=== PATIENT | female | born 1960 | race Caucasian/White ===

== ENCOUNTER 2016-07-13 06:33 | Emergency (ER) | payer OTHER ==
--- NOTE | 2016-07-13 07:59 | Diag Imaging Result Document ---
PROCEDURE NAME: HAND COMPLETE LEFT - 07/13/2016 LEFT HAND, 3 VIEWS: FINDINGS: There is degenerative change in the interphalangeal joints generally. There is deformity of the distal radius which may be due to a previous fracture. There are no previous studies available for comparison. IMPRESSION: Degenerative arthritis.
[2016-07-13] MEDS ORDERED: NORCO-10 PO ONE (10:13)
--- NOTE | 2016-07-13 10:13 | PROVIDER DOCUMENTATION ---
HPI-Musculoskeletal Pain/Inj - GENERAL Chief Complaint: Fall Stated Complaint: FALL Time Seen by Provider: 07/13/16 09:11 Source: patient - HX OF PRESENT ILLNESS-MUSKULOSKELTAL Nature of Presenting Problem: Pt is a 56 y/o F c chief complaint of L hand pain and headache since having a mechanical fall while attempting to hang a shower curtain. Pt denies LOC. She states that she hit her hand when falling. She denies any back or neck pain. Pt is ambulatory on arrival, and in minimal distress. Review of Systems - Adult - REVIEW OF SYSTEMS - ADULT Constitutional: reports: no symptoms reported. denies: chills, fatique Eyes: reports: no symptoms reported. denies: blurred vision, double vision Ears, Nose, Mouth & Throat: reports: no symptoms reported. denies: ear discharge, nose pain Cardiovascular: reports: no symptoms reported. denies: chest pain, heart murmur Respiratory: reports: no symptoms reported. denies: cough, shortness of breath Gastrointestinal: reports: no symptoms reported. denies: abdominal pain, nausea Genitourinary: reports: no symptoms reported. denies: dysuria, hematuria Musculoskeletal: reports: bone pain, joint pain. denies: joint swelling Integumentary: reports: no symptoms reported. denies: itching, rash Neurological: reports: no symptoms reported. denies: numbness, paresthesia Psychiatric: reports: no symptoms reported. denies: anxiety, emotional problems Endocrine: reports: no symptoms reported. denies: cold intolerance, heat intolerance Hematologic/Lymphatic: reports: no symptoms reported. denies: blood clots, low blood count Allergic/Immunologic: reports: no symptoms reported. denies: allergic reactions , food allergy All Other Systems: Reviewed and Negative Past History - Adult - PAST MEDICAL HISTORY-ADULT Review of Records: reports: Old Records Reviewed, Nursing Assessment Review, Medications Reviewed, Social history reviewed & non-contributory. Major Childhood Illnesses: reports: denies history Cardiovascular: reports: denies history Respiratory: reports: denies history Gastrointestinal: reports: denies history Obstetrical/Gynecological: reports: denies history Genitourinary: reports: denies history Musculoskeletal: reports: orthopedic injury Neurological: reports: headaches/migraines, past injury Psychiatric: reports: anxiety Endocrine/Immune: reports: denies history Other Conditions: reports: denies history - PRIOR SURGERIES/PROCEDURES Surgical/Procedure History: reports: appendectomy, cholecystectomy, hysterectomy , orthopedic (extremity) - PRIOR HOSPITALIZATIONS Prior Hospitalizations: reports: none - IMMUNIZATION STATUS Childhood Immunizations: See Nurse Assessment Flu Vaccine: See Nurse Assessment - FAMILY HISTORY Family History: CAD over 55 yo Physical Exam-Injury Related - Physical Exam-Injury Related Initial Vital Signs Reviewed: Yes General Appearance: alert, mild distress Eyes: PERRL/EOMI, pink conjunctivae Head, Ears, Nose, Mouth & Throat: moist mucous membranes, normal ENT inspection , other (Head pain on palpation) Neck: non-tender, full range of motion, supple, normal inspection. negative: C- spine tenderness Respiratory: chest non-tender, lungs clear, normal breath sounds Cardiovascular: normal peripheral pulses, regular rate, rhythm, no edema Abdominal Exam: normal bowel sounds, non tender, soft Lymphatic: no adenopathy Back Exam: normal inspection, no CVA tenderness, no vertebral tenderness Extremity: tenderness (L hand tenderness to 2nd and 3rd MCP joints) Integumentary: normal color, warm/dry, blanching Neurologic: grossly normal, no motor/sensory deficits Psych/Mental Status: normal mood/affect, normal thought content, normal thought process, oriented x 3 - Glascow Coma Score Best Eye Response (Teresa): (4) open spontaneously Best Verbal Response ([place]): (5) oriented Best Motor Response (Teresa): (6) obeys commands Progress - PLAN OF CARE/RESULTS Progress/Plan/Lab Results: Orders Category Date Time Status Wrist Splint DIRECTED Care 07/13/16 10:47 Active HAND COMPLETE LEFT [RAD] Stat Exams 07/13/16 06:39 Completed HEAD/C-SPINE W/O CONTRAST [CT] Stat Exams 07/13/16 09:24 Completed Hydrocodone/APAP 10 mg/325 mg [[place]-10] Med 07/13/16 10:13 Discontinued 1 each PO NOW ONE Vital Signs - 24 hr 07/13/16 07/13/16 06:36 11:04 Temperature 98.2 F 98.6 F Pulse Rate 68 78 Respiratory 18 20 Rate Blood Pressure 152/90 158/106 O2 Sat by Pulse 96 97 Oximetry - XRAY 1 XRAY: Left XRAY Study: Hand Impression: Abnormal (Degenerative Arthritis - Dr. Roberson) - CT/MRI 1 CT Study: Cervical Spine, Head Impression: Normal CT Results: nad - Dr. Roberson Departure - Departure Time of Disposition Order: 10:51 DIAGNOSIS: Fall Qualifiers: Encounter type: initial encounter Qualified Code(s): W19.XXXA - Unspecified fall, initial encounter Left wrist sprain Qualifiers: Encounter type: initial encounter Qualified Code(s): S63.502A - Unspecified sprain of left wrist, initial encounter Headache Qualifiers: Headache type: unspecified Headache chronicity pattern: acute headache Intractability: not intractable Qualified Code(s): R51 - Headache Disposition: HOME 01 Certified Medical Emergency: Emergent Condition: Stable Additional Instructions: ED Follow Up Instructions: You have been treated by a care provider in the Emergency Department. These instructions are being provided to you so you can have an understanding of how to care for yourself upon discharge. Upon discharge from the Emergency Department, you are responsible for making arrangements for follow-up care by a physician of your choice. Take all prescribed medications as directed. Return to the Emergency Department immediately for any new or worsening symptoms. You may call the Physician Referral phone number at [phone] to obtain a list of Physicians who are taking new patients. Prescriptions: Ibuprofen [Motrin] 800 mg PO Q8H PRN PRN #20 tablet PRN Reason: inflammation Omeprazole [Prilosec] 20 mg PO DAILY@0700 #20 capsule Referrals: Alphonso Sinclair MD [STAFF PHYSICIAN] - Forms: Return to School/Parent Work Instructions: Fall Prevention and Home Safety, [id number], Migraine Headache , [id number], Wrist Sprain Attestation - Physician/ BIBI Attestation Patient care was provided by Advanced Practice Provider:: Yes Advanced Practice Provider:: Cheng Martinez Advanced Practice Provider documentation review:: The Mid-level provider documentation, treatment plan and medical decision making was reviewed by the physician who agrees with all treatment and medical decision making by the [facility].
--- NOTE | 2016-07-13 10:21 | Diag Imaging Result Document ---
PROCEDURE NAME: HEAD/C-SPINE W/O CONTRAST - 07/13/2016 CT OF THE HEAD WITHOUT CONTRAST: FINDINGS: There is no evidence of mass effect, bleed, or abnormal extra-axial fluid collection. The visualized paranasal sinuses are clear. 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 Compared to 03/23/2014, there has been no significant change in the appearance of the brain. IMPRESSION: No evidence of acute disease. CT OF THE CERVICAL SPINE: FINDINGS: There is no evidence of acute fracture or subluxation. There is mild osteophyte formation in the uncovertebral joints at the C5-6 and C6-7 levels. There is no prevertebral soft tissue swelling and the facets appear to be aligned. 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 Compared to the previous study of 09/06/2013, there has been no significant change. IMPRESSION: No evidence of acute bony disease.
[2016-07-13 11:05] VITALS: BP 158/106
== END 2016-07-13 11:13 | disposition home or self-care (01) ==
LOC: EDBD → ED 06:33
DX: S63.502A Unspecified sprain of left wrist, initial encounter (principal); W19.XXXA Unspecified fall, initial encounter; R51 Headache; M79.642 Pain in left hand; Z79.899 Other long term (current) drug therapy; F41.9 Anxiety disorder, unspecified; Z82.49 Family history of ischemic heart disease and other diseases of the circulatory system
CPT/HCPCS: 70450; 72125